=== PATIENT | male | born 1975 | race Caucasian/White ===

== ENCOUNTER 2024-05-31 12:02 | Emergency (ER) | payer OTHER ==
[~2024-05-31] VITALS: Ht 195.6 cm; Wt 122.5 kg
[2024-05-31 12:04] VITALS: PULSE 78; RESP 21; TEMP 98.7; O2SAT 98
[2024-05-31] MEDS: METHOCARBAMOL 100MG/1ML 10ML VIAL IM ONE (12:50)
[2024-05-31] MEDS: KETOROLAC TROMETHAMINE 60 MG/2 ML VIAL IM ONE (12:50)
[2024-05-31] MEDS: CYCLOBENZAPRINE HCL 10 MG TAB PO ONE (14:43)
[2024-05-31] MEDS: DIAZEPAM INJ 5 MG/ML 2 ML IV ONE (17:49)
[2024-05-31] MEDS ORDERED: CYCLOBENZAPRINE10 MG PO (18:10)
== END 2024-05-31 18:21 | disposition home or self-care (01) ==
LOC: ER 12:06
DX: M54.50 Low back pain, unspecified (principal); F17.210 Nicotine dependence, cigarettes, uncomplicated
CPT/HCPCS: 99283; J1885; J2800; J3360